=== PATIENT | female | born 1970 | race Caucasian/White ===

== ENCOUNTER 2024-12-25 18:57 | Emergency (ER) | payer BC, SELFPAY ==
[2024-12-25 19:07] VITALS: BP 154/103; PULSE 96; RESP 18; TEMP 36.9; O2SAT 96; BMI 37.3
--- NOTE | 2024-12-25 19:13 | CRLHL7_ITS ---
For Patients: As a result of the Cures Act, medical imaging exams and procedure reports are released immediately into your electronic medical record. You may view this report before your referring provider. If you have questions, please contact your health care provider. Indication: Constipation Technique: Abdomen two views IMPRESSION: Postop changes lumbar spine and cholecystectomy. Additional postop changes upper abdomen. Mild gaseous distention of bowel loops in the mid abdomen noted. Moderate stool in the right colon. IUD. Dictated by Shay Jeffrey MD @ 12/25/2024 7:36:50 PM (Electronically Signed)
--- NOTE | 2024-12-25 19:50 | ED_ITS ---
HPI - General Adult General Chief complaint: Constipation Stated complaint: Abdominal Pain Time Seen by Provider: 12/25/24 19:12 Source: patient Mode of arrival: ambulatory Limitations: no limitations History of Present Illness HPI narrative: 54-year-old female coming in today concerned about not having a bowel movement for 7 days. She states that she has taken doses of Mag citrate, MiraLax, docusate. She has even done 2 at home and enemas. She states that in the last 7 days she has had 1 small firm stool that she had with 1 of the enemas and 1 small episode of runny stools after she took Mag citrate. She denies increasing in abdominal pain. She vomited 1 time after she took Mag citrate, otherwise has not been vomiting. Has had good p.o. intake. She is drinking fluids without difficulty. No urinary symptoms. No fevers. Patient has an extensive intra-abdominal history including history of Dominick-en-Y, small-bowel perforation after an NG tube was inserted, a resolved intra- abdominal abscess, history of intussusception. She states that her discomfort level is not at the level when she had any of those other issues. Of note, patient does take chronic Dilaudid for chronic pain. Related Data Home Medications ?Medication ?Instructions ?Recorded ?Confirmed clonidine HCl .ROUTE 12/25/24 fluoxetine .ROUTE 12/25/24 hydromorphone .ROUTE 12/25/24 levothyroxine .ROUTE 12/25/24 pantoprazole PO 12/25/24 rivaroxaban .ROUTE 12/25/24 ropinirole .ROUTE 12/25/24 Review of Systems Status of ROS: Reports: 10 or more systems reviewed and unremarkable except as noted in History and below Exam Narrative: Exam Narrative: Obese, well-developed patient , appears uncomfortable. Alert and oriented. Answers questions appropriately. Mood and affect are appropriate. Thoughts are goal oriented and rational. No tangential or magical thinking noted. Patient speaks in full sentences without needing to catch her breath. HEENT: Normocephalic atraumatic. Pupils are equally round reactive to light. Extraocular muscles are intact. Conjunctivae are moist without any icterus noted. Moist mucous membranes. Cardiovascular: Heart is regular rate and rhythm. Abdomen: Soft and nondistended with normal bowel sounds. No guarding or rebound tenderness. She has mild discomfort throughout. Skin: Well perfused without any obvious rashes. Const: Vital Signs, click to edit/add: Vital Signs - 24 hr 12/25/24 19:07 Temperature 98.5 F Pulse Rate [Pulse Oximeter] 96 Respiratory Rate 18 Blood Pressure [Ri ght Upper Arm] 154/103 H Pulse Oximetry 96 Oxygen Delivery Me thod Room Air Course Course ED Course: Flat and upright x-ray does not show evidence of obstruction. She has for moderate stool and gaseous distention of the bowel loops. We did not proceed with any blood work today as she is not having any symptoms consistent with infection. Vital Signs Vital signs: Initial Vital Signs Temperature 98.5 F 12/25/24 19:07 Temperature Source Temporal Artery Scan 12/25/24 19:07 Pulse Rate 96 12/25/24 19:07 Respiratory Rate 18 12/25/24 19:07 Blood Pressure 154/103 H 12/25/24 19:07 Blood Pressure Mean 120 H 12/25/24 19:07 Blood Pressure Position Sitting 12/25/24 19:07 Pulse Oximetry 96 12/25/24 19:07 Oxygen Delivery Method Room Air 12/25/24 19:07 Vital Signs Temperature 98.5 F 12/25/24 19:07 Pulse Rate 96 12/25/24 19:07 Respiratory Rate 18 12/25/24 19:07 Blood Pressure 154/103 H 12/25/24 19:07 Pulse Oximetry 96 12/25/24 19:07 Oxygen Delivery Method Room Air 12/25/24 19:07 Temperature 98.5 F 12/25/24 19:07 Pulse Rate 96 12/25/24 19:07 Respiratory Rate 18 12/25/24 19:07 Blood Pressure 154/103 H 12/25/24 19:07 Pulse Oximetry 96 12/25/24 19:07 Oxygen Delivery Method Room Air 12/25/24 19:07 Medical Decision Making MDM Narrative Medical decision making narrative: 54-year-old female with constipation. I did offer the patient an enema in the ED today and she declines. She is interested in oral treatment that she can do at home. Patient will be discharged home with a constipation 3 day clean out regime. We discussed having a low threshold to return to the ED for evolving symptoms. Imaging Data Abdominal x-ray: Attestation: I have reviewed the pertinent imaging results. Radiologist's impression: Indication: Constipation Technique: Abdomen two views IMPRESSION: Postop changes lumbar spine and cholecystectomy. Additional postop changes upper abdomen. Mild gaseous distention of bowel loops in the mid abdomen noted. Moderate stool in the right colon. IUD. Discharge Plan Discharge Clinical Impression: Constipation Patient Disposition: Home, Self-Care Condition: Stable Additional Instructions: For the next 3 days or until you have a large bowel movement, do the following: Start MiraLax 2-1/2 cap fulls in 12-16 oz of water, 2 times per day. Take along with senna 8.6 mg tablets, 2 tablets at bedtime. Once the 3 days have elapsed you should continue a maintenance dose of MiraLax daily. And follow-up with your primary care provider. If you develop worsening abdominal pain, vomiting, inability to take food or liquid, or fevers then you should return to the emergency department right away. Prescriptions: No Action levothyroxine .ROUTE pantoprazole [Protonix] PO clonidine HCl .ROUTE fluoxetine [Prozac] .ROUTE hydromorphone .ROUTE ropinirole [Requip] .ROUTE rivaroxaban [Xarelto] .ROUTE Follow Up/Referrals: Provider,Not a Local [Primary Care Provider, Family Practice] Stand Alone Forms: [employer] Info Instructions
== END 2024-12-25 20:02 | disposition home or self-care (01) ==
PROVIDERS: Emergency Provider Family Medicine
DX: K59.00 Constipation, unspecified (principal)
CPT/HCPCS: 74019; 99283; 99284